=== PATIENT | female | born 1990 | race Caucasian/White ===

== ENCOUNTER → 2023-01-18 | Outpatient (CLI) | payer OTHER | END | disposition home or self-care (01) | LOC: RAH 13:44 | PROVIDERS: ATTEND Obstetrics & Gynecology | DX: N60.02 Solitary cyst of left breast (principal); N94.6 Dysmenorrhea, unspecified; N60.01 Solitary cyst of right breast; Z98.82 Breast implant status | CPT/HCPCS: 76856 ==

== ENCOUNTER 2023-08-07 11:56 | Emergency (ER) | payer OTHER ==
[~2023-08-07] VITALS: Ht 175.3 cm; Wt 79.8 kg
[2023-08-07] MEDS: LACTATED RINGERS 1000ML 1,000 ML IV STA (12:25)
[2023-08-07] MEDS: ACETAMINOPHEN 325 MG TAB PO ONE (12:26)
[2023-08-07 13:04] LABS: BASOPHILS % (AUTO) 0.7 % (0.0-5.0); EOSINOPHILS # (AUTO) 0.35 K/uL (0.00-0.70); EOSINOPHILS % (AUTO) 2.3 % (0.0-8.0); HEMATOCRIT 36.3 % (36-48); IMMATURE GRANULOCYTE ABSOLUTE 0.15 K/uL (0-1); LYMPHOCYTES # (AUTO) 2.6 K/uL (1.0-4.8); LYMPHOCYTES % (AUTO) 16.9 % (21.0-51.0); MEAN CORPUSCULAR HEMOGLOBIN 30.3 pg (27.0-33.0); MEAN CORPUSCULAR HGB CONC 34.2 g/dL (32.0-36.0); MEAN CORPUSCULAR VOLUME 88.8 fL (79-99); MONOCYTES % (AUTO) 6.5 % (3.0-13.0); NEUTROPHILS # (AUTO) 11.1 K/uL (1.8-7.7); NEUTROPHILS % (AUTO) 72.6 % (40.0-77.0); PLATELET COUNT (AUTO) 296 K/uL (130-400); RED BLOOD CELL COUNT(AUTO) 4.09 MIL/uL (4.00-5.50); RED CELL DISTRIBUTION WIDTH 12.6 % (11.0-15.5); WHITE BLOOD COUNT (AUTO) 15.3 K/uL (4.8-10.8)
[2023-08-07 13:40] LABS: APPEARANCE,URINE CLEAR (CLEAR); BILIRUBIN,URINE NEGATIVE (NEGATIVE); COLOR,URINE COLORLESS (YELLOW); GLUCOSE, URINE (UA) NEGATIVE (NEGATIVE); KETONES,URINE NEGATIVE (NEGATIVE); LEUKOCYTE ESTERASE ,URINE NEGATIVE Leu/uL (NEGATIVE); NITRATE,URINE NEGATIVE (NEGATIVE); OCCULT BLOOD,URINE NEGATIVE (NEGATIVE); PROTEIN,URINE NEGATIVE (NEGATIVE); UROBILINOGEN,URINE 0.2 mg/dL (0.2-1.0)
[2023-08-07 13:45] LABS: BACTERIA,URINE RARE /HPF (None Seen); RBC,URINE 0-1 /HPF (0-1); SQUAMOUS EPITHELIAL CELL,UR RARE /HPF (0-2); WBC,URINE 0-1 /HPF (0-1)
[2023-08-07 13:57] VITALS: BP 129/70; PULSE 82; RESP 18; O2SAT 99
[2023-08-07 14:37] LABS: CREATININE 0.6 mg/dL (0.5-1.0); POTASSIUM 3.9 mmol/L (3.5-5.1)
[2023-08-07 14:42] LABS: ALBUMIN 2.9 g/dL (3.5-5.0); BILIRUBIN,TOTAL 0.2 mg/dL (0.2-1.0); TOTAL PROTEIN, SERUM 6.2 g/dL (6.0-8.3)
== END 2023-08-07 14:55 | disposition home or self-care (01) ==
LOC: EDH 11:56
DX: O26.891 Other specified pregnancy related conditions, first trimester (principal); R10.9 Unspecified abdominal pain; J45.909 Unspecified asthma, uncomplicated; Z98.890 Other specified postprocedural states; Z88.0 Allergy status to penicillin; Z3A.01 Less than 8 weeks gestation of pregnancy
CPT/HCPCS: 99284; 96360; 76705; 76801; 80053; 84703; 84702; 85025; 81001; 36415; J7120; 96365

== ENCOUNTER 2023-11-11 12:18 | Observation (INO) | payer OTHER ==
[~2023-11-11] VITALS: Ht 175.3 cm; Wt 92.1 kg
[2023-11-11 12:42] VITALS: BP 145/98; PULSE 95; RESP 18; O2SAT 98
[2023-11-11 13:10] LABS: BASOPHILS # (AUTO) 0.08 K/uL (0.00-0.20); BASOPHILS % (AUTO) 0.7 % (0.0-5.0); EOSINOPHILS # (AUTO) 0.19 K/uL (0.00-0.70); EOSINOPHILS % (AUTO) 1.5 % (0.0-8.0); HEMATOCRIT 30.4 % (36-48); IMMATURE GRANULOCYTE ABSOLUTE 0.14 K/uL (0-1); LYMPHOCYTES # (AUTO) 2.1 K/uL (1.0-4.8); LYMPHOCYTES % (AUTO) 16.7 % (21.0-51.0); MEAN CORPUSCULAR HEMOGLOBIN 30.5 pg (27.0-33.0); MEAN CORPUSCULAR HGB CONC 34.2 g/dL (32.0-36.0); MEAN CORPUSCULAR VOLUME 89.1 fL (79-99); MONOCYTES # (AUTO) 0.9 K/uL (0.1-1.0); MONOCYTES % (AUTO) 7.1 % (3.0-13.0); NEUTROPHILS % (AUTO) 72.9 % (40.0-77.0); PLATELET COUNT (AUTO) 259 K/uL (130-400); RED BLOOD CELL COUNT(AUTO) 3.41 MIL/uL (4.00-5.50); RED CELL DISTRIBUTION WIDTH 12.6 % (11.0-15.5); WHITE BLOOD COUNT (AUTO) 12.3 K/uL (4.8-10.8)
[2023-11-11 13:12] LABS: CREATININE 0.8 mg/dL (0.5-1.0); POTASSIUM 3.5 mmol/L (3.5-5.1)
[2023-11-11 13:16] LABS: INR <= 0.93 (0.85-1.15); PROTHROMBIN TIME 10.1 SEC (9.6-11.6)
[2023-11-11 13:17] LABS: PARTIAL THROMBOPLASTIN TIME 24.9 SEC (26.3-35.5)
[2023-11-11] MEDS ORDERED: LABETALOL 20MG VIAL IV PRN (14:00)
[2023-11-11] MEDS: LABETALOL HCL 100 MG TABLET PO ONE (14:07)
[2023-11-11] MEDS: LABETALOL HCL 100 MG TABLET ONE (14:16)
[2023-11-11 14:18] LABS: ALBUMIN 2.2 g/dL (3.5-5.0); BILIRUBIN,DIRECT 0.1 mg/dL (0.0-0.3); BILIRUBIN,TOTAL 0.1 mg/dL (0.2-1.0)
[2023-11-11] MEDS ORDERED: CELESTONE SOLUSPAN 6 MG/ML 5ML VIAL IM SCH (14:42)
[2023-11-11] MEDS: CELESTONE SOLUSPAN 6 MG/ML 5ML VIAL IM SCH (15:14)
[2023-11-11 16:16] LABS: APPEARANCE,URINE CLEAR (CLEAR); BILIRUBIN,URINE NEGATIVE (NEGATIVE); COLOR,URINE YELLOW (YELLOW); GLUCOSE, URINE (UA) NEGATIVE (NEGATIVE); KETONES,URINE NEGATIVE (NEGATIVE); LEUKOCYTE ESTERASE ,URINE NEGATIVE Leu/uL (NEGATIVE); NITRATE,URINE NEGATIVE (NEGATIVE); OCCULT BLOOD,URINE NEGATIVE (NEGATIVE); PH,URINE 6.5 (5.0-8.0); PROTEIN,URINE 20 mg/dL (NEGATIVE); UROBILINOGEN,URINE 0.2 mg/dL (0.2-1.0)
[2023-11-11 16:17] LABS: ADD UA MICROSCOPIC YES
[2023-11-11 16:19] LABS: BACTERIA,URINE RARE /HPF (None Seen); MUCUS,URINE RARE LPF (None Seen); RBC,URINE 0-1 /HPF (0-1); SQUAMOUS EPITHELIAL CELL,UR RARE /HPF (0-2); YEAST,URINE BUDDING RARE /HPF (None Seen)
[2023-11-11] MEDS: LABETALOL HCL 100 MG TABLET PO SCH (20:58)
[2023-11-12 14:20] LABS: COLLECTION PERIOD,URINE 24 HR; TOTAL VOLUME 24HRS,URINE 1650 mL
[2023-11-12 14:21] LABS: TPROTEIN TIMED,URINE 25 mg/dL; TPROTEIN U,24HR CALC 413 mg/24HR (0-165)
[2023-11-12 14:22] LABS: CREATININE,SERUM FOR CRCL 0.8 mg/dL (0.6-1.3)
[2023-11-12] MEDS: CELESTONE SOLUSPAN 6 MG/ML 5ML VIAL IM SCH (14:49)
== END 2023-11-12 15:35 | disposition home or self-care (01) ==
LOC: EDH 12:18 → LDH 13:07
PROVIDERS: ADMIT Obstetrics & Gynecology; ATTEND Obstetrics & Gynecology
DX: O14.93 Unspecified pre-eclampsia, third trimester (principal); O13.3 Gestational [pregnancy-induced] hypertension without significant proteinuria, third trimester; O99.513 Diseases of the respiratory system complicating pregnancy, third trimester; J45.909 Unspecified asthma, uncomplicated; R60.0 Localized edema; Z3A.29 29 weeks gestation of pregnancy
CPT/HCPCS: 96372 ×2; 99285; 80076; 84550; 80048; 85025; 85384; 85610; 85730; 86850; 86900; 86901; 81001; 36415; 71046; 93306; 93356; 93970; 76805; 93005; 96360; 96361; 82575; 84156; G0378 ×26; J0702 ×2

== ENCOUNTER 2023-12-05 10:57 | Inpatient (IN) | payer OTHER ==
[~2023-12-05] VITALS: Ht 175.3 cm; Wt 95.7 kg
[2023-12-05] MEDS ORDERED: CALDOLOR 800MG+NS 250ML 250 ML IV PRN (11:30)
[2023-12-05] MEDS ORDERED: LACTATED RINGERS 1000ML 1,000 ML IV PRN (11:30)
[2023-12-05] MEDS ORDERED: GENTAmicin SULFate 80 MG/2 ML 240 MG in 0.9%NACL 100ML 100 ML IV PRN (11:30)
[2023-12-05 12:06] LABS: BASOPHILS % (AUTO) 0.8 % (0.0-5.0); EOSINOPHILS # (AUTO) 0.36 K/uL (0.00-0.70); EOSINOPHILS % (AUTO) 2.9 % (0.0-8.0); HEMATOCRIT 32.4 % (36-48); IMMATURE GRANULOCYTE ABSOLUTE 0.14 K/uL (0-1); LYMPHOCYTES % (AUTO) 24.4 % (21.0-51.0); MEAN CORPUSCULAR HEMOGLOBIN 29.6 pg (27.0-33.0); MEAN CORPUSCULAR HGB CONC 33.6 g/dL (32.0-36.0); MONOCYTES % (AUTO) 8.3 % (3.0-13.0); NEUTROPHILS # (AUTO) 7.6 K/uL (1.8-7.7); NEUTROPHILS % (AUTO) 62.5 % (40.0-77.0); PLATELET COUNT (AUTO) 391 K/uL (130-400); RED BLOOD CELL COUNT(AUTO) 3.68 MIL/uL (4.00-5.50); RED CELL DISTRIBUTION WIDTH 12.9 % (11.0-15.5); WHITE BLOOD COUNT (AUTO) 12.2 K/uL (4.8-10.8)
[2023-12-05 12:12] LABS: INR <= 0.93 (0.85-1.15); PROTHROMBIN TIME 9.7 SEC (9.6-11.6)
[2023-12-05 12:14] LABS: PARTIAL THROMBOPLASTIN TIME 24.3 SEC (26.3-35.5)
[2023-12-05 12:17] LABS: FIBRINOGEN 455 mg/dL (180-350)
[2023-12-05 12:33] LABS: HIV 1&2 ANTIBODY Non-Reactive (Negative)
[2023-12-05 12:34] LABS: HIV-1 p24 Antigen Non-Reactive (Negative)
[2023-12-05] MEDS ORDERED: SODIUM BICARB 50MEQ 50ML VIAL 50 ML ONE (12:44)
[2023-12-05] MEDS ORDERED: ondanSETRON 4MG INJ ONE (12:44)
[2023-12-05] MEDS ORDERED: dexaMETHasone SOD PHOSPHATE 10MG/ML 1ML VIAL ONE (12:44)
[2023-12-05] MEDS ORDERED: ROPivacaine 0.5% 5MG/ML 30ML ONE (12:54)
[2023-12-05 12:55] LABS: ALBUMIN 2.1 g/dL (3.5-5.0); BILIRUBIN,TOTAL 0.2 mg/dL (0.2-1.0); CREATININE 0.9 mg/dL (0.5-1.0); POTASSIUM 4.4 mmol/L (3.5-5.1); TOTAL PROTEIN, SERUM 6.2 g/dL (6.0-8.3); URIC ACID 7.4 mg/dL (2.6-7.2)
[2023-12-05] MEDS: LACTATED RINGERS 1000ML 1,000 ML IV SCH (13:06)
[2023-12-05 13:15] LABS: APPEARANCE,URINE CLEAR (CLEAR); BILIRUBIN,URINE NEGATIVE (NEGATIVE); COLOR,URINE LIGHT-YELLOW (YELLOW); GLUCOSE, URINE (UA) NEGATIVE (NEGATIVE); KETONES,URINE NEGATIVE (NEGATIVE); LEUKOCYTE ESTERASE ,URINE NEGATIVE Leu/uL (NEGATIVE); NITRATE,URINE NEGATIVE (NEGATIVE); OCCULT BLOOD,URINE NEGATIVE (NEGATIVE); PROTEIN,URINE 200 mg/dL (NEGATIVE); UROBILINOGEN,URINE 0.2 mg/dL (0.2-1.0)
[2023-12-05 13:32] LABS: ADD UA MICROSCOPIC YES
[2023-12-05 13:37] LABS: BACTERIA,URINE RARE /HPF (None Seen); SQUAMOUS EPITHELIAL CELL,UR FEW /HPF (0-2)
[2023-12-05] MEDS ORDERED: MISOPROSTOL 200 MCG TABLET ONE (14:33)
[2023-12-05] MEDS ORDERED: TRANEXAMIC ACID 1000MG/10ML ONE (14:33)
[2023-12-05] MEDS: CLINDAMYCIN IVPB 900MG/50ML 50 ML IV PRN (15:31)
[2023-12-05] MEDS ORDERED: FENTanyl CITRate PF 50 MCG/1 ML 2ML VIAL ONE (15:40)
[2023-12-05] MEDS ORDERED: morPHINE PF 100MG/10ML AMP IV ONE (15:40)
[2023-12-05] MEDS ORDERED: phenylEPHRINE HCL 10 MG/ML 1ML VIAL IV ONE (15:41)
[2023-12-05] MEDS ORDERED: ePHEDrine SULFate 50 MG/ML AMPULE ONE ×2 (16:34→17:30)
[2023-12-05] MEDS ORDERED: ePHEDrine SULFate 50 MG/ML AMPULE IM ONE (17:31)
[2023-12-05] MEDS: LORATAdine 10 mg 10 MG TABLET PO ONE (17:56)
[2023-12-05] MEDS ORDERED: 0.9%NACL 10ML VIAL IVP PRN (18:30)
[2023-12-05] MEDS ORDERED: PROMETHAZINE HCL 25 MG/ML 1ML AMPULE IM PRN (18:30)
[2023-12-05] MEDS ORDERED: MEPERIDINE-PF 75 MG/ML SYG IM PRN (18:30)
[2023-12-05 19:30] VITALS: BP 115/79; PULSE 93; RESP 20; TEMP 98
[2023-12-05] MEDS: LAbetaLOL HCL 100 MG TABLET PO SCH (20:59)
[2023-12-05] MEDS ORDERED: ASPI-1005 PO (21:37)
[2023-12-05] MEDS ORDERED: CETI10CA5 PO (21:40)
[2023-12-05] MEDS ORDERED: ESOM20SU PO (21:46)
[2023-12-05] MEDS ORDERED: HYDR25TA PO (21:47)
[2023-12-05] MEDS ORDERED: LABE300T4 PO (21:50)
[2023-12-05] MEDS ORDERED: HYDR25TA67 PO (22:06)
[2023-12-05 23:00] VITALS: BP 104/74; PULSE 88; RESP 20; TEMP 98
[2023-12-05] MEDS: DEXTROSE 5 %-0.45 % NACL 1,000 ML IV PRN (23:22)
[2023-12-06 00:50] VITALS: BP 116/73; PULSE 79; RESP 20
[2023-12-06] MEDS: CALDOLOR 800MG+NS 250ML 250 ML IV SCH (01:03)
[2023-12-06] MEDS ORDERED: DiphenhydrAMINE HCL 25 MG CAPSULE PO PRN (01:30)
[2023-12-06] MEDS ORDERED: HYDROcodone/APAP 5/325 1 TAB TABLET PO PRN (01:30)
[2023-12-06] MEDS ORDERED: LANOLIN 30GM OINTMENT TP PRN (01:30)
[2023-12-06 03:00] VITALS: BP 114/73; PULSE 82; RESP 20; TEMP 98
[2023-12-06 07:12] LABS: HEMATOCRIT 24.4 % (36-48); MEAN CORPUSCULAR HEMOGLOBIN 30.4 pg (27.0-33.0); MEAN CORPUSCULAR VOLUME 89.4 fL (79-99); RED BLOOD CELL COUNT(AUTO) 2.73 MIL/uL (4.00-5.50); RED CELL DISTRIBUTION WIDTH 13.1 % (11.0-15.5); WHITE BLOOD COUNT (AUTO) 24.2 K/uL (4.8-10.8)
[2023-12-06 07:50] VITALS: BP 130/87; PULSE 78; RESP 18; TEMP 97.9
[2023-12-06] MEDS: ibuPROFEN 800 MG TAB PO SCH (09:00)
[2023-12-06] MEDS: SIMETHICONE 80 MG TAB.CHEW PO PRN (10:22)
[2023-12-06] MEDS: doCUSate SODIUM 100 MG CAP PO SCH (10:22)
[2023-12-06 10:42] LABS: RAPID PLASMA REAGIN NONREACTIVE (NONREACTIVE)
[2023-12-06 11:15] VITALS: BP 128/86; PULSE 85; RESP 18; TEMP 98.2
[2023-12-06] MEDS: acetaMINOPHEN WITH coDEINE 1 TAB TAB PO PRN (13:28)
[2023-12-06 16:00] VITALS: BP 129/96; PULSE 93; RESP 18; TEMP 98.2
[2023-12-06 19:46] VITALS: BP 132/72; PULSE 99; RESP 20; TEMP 98
[2023-12-07] VITALS (7 sets, daily range): BP systolic 120–146; BP diastolic 71–98; PULSE 94–119; RESP 18–22; TEMP 97.7–98.4
[2023-12-07] MEDS: BisaCODYL 10 MG SUPP.RECT RC PRN (19:51)
[2023-12-07] MEDS: acetaMINOPHEN 500 MG TABLET PO PRN (21:51)
[2023-12-08 03:54] VITALS: BP 138/93; PULSE 116; RESP 20; TEMP 98
[2023-12-08 08:00] VITALS: BP 149/114; PULSE 122; RESP 18; TEMP 98.6
[2023-12-08 10:00] VITALS: BP 149/107; PULSE 112
[2023-12-08] MEDS: LAbetaLOL HCL 200 MG TABLET PO SCH (10:28)
[2023-12-08 11:40] VITALS: BP 127/91; PULSE 106; RESP 19; TEMP 98
[2023-12-08] MEDS ORDERED: LABE200T7 PO (16:23)
[2023-12-08] MEDS ORDERED: PREN1TAB80 PO (16:24)
[2023-12-08 16:50] VITALS: BP_SYST 139; BP_SYST 148; BP_DIAS 106; BP_DIAS 99; PULSE 105; RESP 18; TEMP 98.5
== END 2023-12-08 18:20 | disposition home or self-care (01) | DRG 788 ==
LOC: LDH 11:24 → WSH 12-06 11:03
PROVIDERS: ADMIT Obstetrics & Gynecology; ATTEND Obstetrics & Gynecology
PROC: 10D00Z1 Extraction of Products of Conception, Low, Open Approach (ICD-10-PCS; principal; 2023-12-05 14:00)
DX: O14.94 Unspecified pre-eclampsia, complicating childbirth (principal); Z3A.33 33 weeks gestation of pregnancy; Z37.0 Single live birth; O36.5130 Maternal care for known or suspected placental insufficiency, third trimester, not applicable or unspecified; O36.5930 Maternal care for other known or suspected poor fetal growth, third trimester, not applicable or unspecified
CPT/HCPCS: 36415; 59510; 80053; 81001; 84550; 85025; 85027; 85384; 85610; 85730; 86592; 86701; 86850; 86900; 86901; 87340; 87390; 88307; A4344; G0378; J1100; J1741; J2274; J2371; J2405; J2590; J2795; J3010; J3490; J7120; A4248; C1765; L0625

== ENCOUNTER 2024-03-29 09:00 | Emergency (ER) | payer OTHER ==
[~2024-03-29] VITALS: Ht 175.3 cm; Wt 78.0 kg
[~2024-03-29 09:00] MED LIST: ESOM20SU PO; LABE200T7 PO; PREN1TAB80 PO
[2024-03-29 09:26] VITALS: BP 141/90; PULSE 90; RESP 17; TEMP 98.3; O2SAT 99
[2024-03-29] MEDS ORDERED: METH8TAB PO (09:31)
[2024-03-29] MEDS ORDERED: AZIT500T4 PO (09:31)
[2024-03-29] MEDS ORDERED: ALBU18HF7 IH (09:31)
[2024-03-29] MEDS: OCTYL 2-CYANOACRYLATE 1 EACH TP ONE (09:32)
[2024-03-29] MEDS: OCTYL 2-CYANOACRYLATE 1 EACH TP SCH (09:32)
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
--- NOTE | 2024-03-29 09:40 | NUR ---
CLEANED LACERATION TO LEFT PINKEY WITH WOUND CLEANSER AND IODINE. DR. SHAY APPLIED DERMABOND TO LAC.
== END 2024-03-29 09:59 | disposition home or self-care (01) ==
LOC: EDH 09:00
DX: S61.217A Laceration without foreign body of left little finger without damage to nail, initial encounter (principal); J06.9 Acute upper respiratory infection, unspecified; J45.909 Unspecified asthma, uncomplicated; Z79.899 Other long term (current) drug therapy; Z88.0 Allergy status to penicillin; Z98.890 Other specified postprocedural states; W26.0XXA Contact with knife, initial encounter; Y93.G3 Activity, cooking and baking; Y92.89 Other specified places as the place of occurrence of the external cause; Y99.8 Other external cause status
CPT/HCPCS: 12001; 99283